=== PATIENT | female | born 1960 | race Two or more races ===

== ENCOUNTER 2018-01-12 13:04 | Emergency (ER) | payer MEDICAID, OTHER ==
[~2018-01-12] VITALS: Ht 154.9 cm; Wt 72.6 kg
[~2018-01-12 13:04] MED LIST: LOSA50TA21 PO; PANT40TA2 PO; PRAV10TA40 PO; RANI150T8 PO
[2018-01-12 13:15] VITALS: BP 174/73
== END 2018-01-12 14:40 | disposition home or self-care (01) ==
LOC: ER 13:07
DX: M79.605 Pain in left leg (principal); I10 Essential (primary) hypertension; E11.9 Type 2 diabetes mellitus without complications; E78.5 Hyperlipidemia, unspecified; K21.9 Gastro-esophageal reflux disease without esophagitis; Z90.710 Acquired absence of both cervix and uterus
CPT/HCPCS: 73590; 99284; A4606; Z7610

== ENCOUNTER 2019-08-08 21:21 | Emergency (ER) | payer OTHER ==
[~2019-08-08] VITALS: Ht 152.4 cm; Wt 63.5 kg
[~2019-08-08 21:21] MED LIST changes: -LOSA50TA21 PO; +LOSA50TA39 PO
[2019-08-08 21:30] VITALS: BP 136/87
--- NOTE | 2019-08-08 21:31 | NUR ---
PT AAOX4. AMBULATORY. BIBSELF W . PT C/O GENERALIZED ITCHING. FACIAL REDNESS NOTED. PER PT, "I THINK I HAVE ALLERGIES, MY FACE IS RED SINCE THE MORNING AND I AM ITCHING." PT PLACED IN ROOM 6. NO ACUTE DISTRESS NOTED. AWAITING MD FOR EVAL. NO ACUTE DISTRESS NOTED.
== END 2019-08-08 21:56 | disposition home or self-care (01) ==
LOC: ER 21:24
DX: L50.9 Urticaria, unspecified (principal); I10 Essential (primary) hypertension; E78.5 Hyperlipidemia, unspecified; K21.9 Gastro-esophageal reflux disease without esophagitis; E11.9 Type 2 diabetes mellitus without complications; Z90.710 Acquired absence of both cervix and uterus; Z79.899 Other long term (current) drug therapy

== ENCOUNTER 2020-12-26 01:30 | Emergency (ER) | payer OTHER ==
[~2020-12-26] VITALS: Ht 152.4 cm; Wt 75.7 kg
--- NOTE | 2020-12-26 01:57 | NUR ---
PRESENTED TO THE ER FOR C/O FEELING SOMETHING IS STUCK IN HER THROAT S/P SWALLOWING A BECKHAM SEED. - SOB. - TROUBLE SWALLOWING. AMBULATORY TO BED 4 ER . WS PLACED ON A MONITOR . NOTED W. HIGH BP. WILL CONT TO MONITOR ,
--- NOTE | 2020-12-26 02:10 | NUR ---
pt taken to ct
[2020-12-26 03:28] VITALS: BP 165/88
--- NOTE | 2020-12-26 03:28 | NUR ---
Patient discharged to home in stable condition. Written and verbal after care instructions given. Patient verbalizes understanding of instruction.
== END 2020-12-26 03:29 | disposition home or self-care (01) ==
LOC: ER 01:33
DX: R09.89 Other specified symptoms and signs involving the circulatory and respiratory systems (principal); Z71.1 Person with feared health complaint in whom no diagnosis is made; I10 Essential (primary) hypertension; E78.5 Hyperlipidemia, unspecified; K21.9 Gastro-esophageal reflux disease without esophagitis; E11.9 Type 2 diabetes mellitus without complications; Z98.890 Other specified postprocedural states; Z79.899 Other long term (current) drug therapy
CPT/HCPCS: 70490-TC